=== PATIENT | female | born 1970 | race African-American/Black ===

== ENCOUNTER 2018-09-11 09:24 | Emergency (ER) | payer OTHER ==
[2018-09-11 09:43] VITALS: BP 144/99; PULSE 69; TEMP 98.4; BMI 34.7
--- NOTE | 2018-09-11 09:48 | PDOC ---
History of Present Illness - General Chief Complaint: Pain Stated Complaint: LEFT HAND PAIN Time Seen by Provider: 09/11/18 09:40 - History of Present Illness Initial Comments: 09/11/18 11:11 chief complaint: Hand pain History of sent illness: Pain in the fourth MCP J for several days worse with finger movement. No acute injury, but worse with small children and constantly using her arms and hands Review of syst:no chest painess of breath, abdominal , nausea, vomiting or diarrhea URI symptoms sore throat cough fevers or chills other myalgias or arthralgias joint pains or inflammation. Past medical history asthma, high blood pressure, drug abuse Social/family history reviewed and noncontributory including arthritic diseases. Physical exam: alert oriented no distress afebrile, vital signs normal Left hand: No visible swelling, erythema, induration, or warmth. Tenderness is present over the extensor of the fourth digit, and there is pain with movement of the finger. Capillary refill intact. Pulses full. No sensory or motor deficits X-ray negative Impression: Probable tendinitis. No sign of inflammation. No other joint symptoms Plan: Volar splint, rest, continue Motrin,follow-up hand specialist if no improvement. Past History - Past Medical History Allergies/Adverse Reactions: Allergies Allergy/AdvReac Type Severity Reaction Status Date / Time No Known Allergies Allergy Verified 09/11/18 09:27 Home Medications: Ambulatory Orders traZODone HCL [Desyrel -] 100 mg PO HS #30 tablet 05/13/16 Amlodipine Besylate [Norvasc -] 10 mg PO DAILY #30 tablet 10/25/17 Budesonide/Formeterol Fumarate [SYMBICORT 160/4.5mcg -] 1 puff IH BID #1 inhaler 10/25/17 Hydrochlorothiazide [Hctz -] 12.5 mg PO DAILY #30 cap 10/25/17 Doxepin HCl [Sinequan -] 50 mg PO HS #30 capsule 10/26/17 Melatonin 10 mg PO HS #30 capsule 12/08/17 Propranolol HCl 10 mg PO BID #60 tablet 12/08/17 Sertraline HCl [Zoloft -] 50 mg PO DAILY #30 tablet 12/08/17 Fluticasone Prop 0.05% Nasal [Flonase -] 1 - 2 spray NS BID 09/11/18 Anemia: No Asthma: Yes Cancer: No Cardiac Disorders: No CVA: No COPD: No CHF: No Dementia: No Diabetes: No GI Disorders: No Disorders: No HTN: Yes Hypercholesterolemia: No Kidney Stones: No Liver Disease: No Seizures: No Thyroid Disease: No - Surgical History Abdominal Surgery: No Appendectomy: No Cardiac Surgery: No Cholecystectomy: No Lung Surgery: No Neurologic Surgery: No Orthopedic Surgery: No - Suicide/Smoking/Psychosocial Hx Smoking History: Never smoked Have you smoked in the past 12 months: No Information on smoking cessation initiated: No Hx Alcohol Use: Yes (OCCASIONAL) Drug/Substance Use Hx: Yes (BY PASSED MED RECORD) Substance Use Type: Alcohol, Cocaine, Marijuana Hx Substance Use Treatment: Yes (reports 3 years of abstinence about 10 yo) Trauma Specific PMHX - Complaint Specific PMHX Arthritis: No *Physical Exam - Vital Signs Last Vital Signs Temp Pulse Resp BP Pulse Ox 98.4 F 69 20 144/99 100 09/11/18 09:25 09/11/18 09:25 09/11/18 09:25 09/11/18 09:25 09/11/18 09:25 *DC/Admit/Observation/Transfer Diagnosis at time of Disposition: Tendinitis - Discharge Dispostion Disposition: HOME Condition at time of disposition: Stable Decision to Admit order: No - Referrals Referrals: Vahid Cadena MD [Staff Physician] - 1 week - Patient Instructions Printed Discharge Instructions: DI for Tendinitis - Post Discharge Activity Forms/Work/School Notes: Back to Work
== END 2018-09-11 11:11 | disposition home or self-care (01) ==
LOC: FER 09:24
PROC: 2W3DX1Z Immobilization of Left Lower Arm using Splint (ICD-10-PCS; principal; 2018-09-11)
DX: M77.9 Enthesopathy, unspecified (principal); I10 Essential (primary) hypertension; J45.909 Unspecified asthma, uncomplicated
CPT/HCPCS: 29126; 73130-TC-LT-FY; 99282-25